=== PATIENT | male | born 1955 | race Caucasian/White ===

== ENCOUNTER 2017-12-02 01:15 | Emergency (ER) | payer MEDICARE, MEDICAID ==
[~2017-12-02] VITALS: Ht 165.1 cm; Wt 93.1 kg
[~2017-12-02 01:15] MED LIST: ADV50250 IH; ALBU18HF2 IH; ALBU2.5V13 NEB; COLC0.6T66 PO; CYCL-1 PO; HYDR12.5 PO; IBUP-1984 PO; IPRA4AER IH; LEV500T PO; NORCO10T PO; PRED20TA PO
[2017-12-02] MEDS ORDERED: albuterol 2.5 MG/3 ML nebule CONTNEB PRN (01:45)
[2017-12-02] MEDS ORDERED: methylPREDNISolone sod succ 125mg/2ml vial IV ONE (01:45)
[2017-12-02 02:11] LABS: BASOPHILS # (AUTO) 0.3 X10'3 (0-0.2); BASOPHILS % (AUTO) 1.8 % (0-1); EOSINOPHILS % (AUTO) 0 % (0-6); HEMATOCRIT 53.7 % (42.0-52.0); LYMPHOCYTES # (AUTO) 1.3 X10'3 (1.1-4.8); LYMPHOCYTES % (AUTO) 8.8 % (21-51); MEAN CORPUSCULAR HEMOGLOBIN 29.6 PG (27.0-31.0); MEAN CORPUSCULAR HGB CONC 33.9 % (33.0-36.5); MEAN CORPUSCULAR VOLUME 87.2 FL (78-98); MEAN PLATELET VOLUME 7.4 FL (7.4-10.4); MONOCYTES # (AUTO) 0.9 X10'3 (0-0.9); MONOCYTES % (AUTO) 5.9 % (2-12); NEUTROPHILS # (AUTO) 12.3 X10'3 (1.8-7.7); NEUTROPHILS % (AUTO) 83.5 % (42-75); PLATELET COUNT 249 X10'3 (140-440); RED BLOOD COUNT 6.17 X10'6 (4.70-6.10); RED CELL DISTRIBUTION WIDTH 13.9 % (11.5-14.5); WHITE BLOOD COUNT 14.8 X10'3 (4.5-11.0)
[2017-12-02 02:19] LABS: HEMOGLOBIN 18.2 g/dl (14.0-17.9)
[2017-12-02 02:20] LABS: PARTIAL THROMBOPLASTIN TIME 26 SECONDS (22-32); PROTHROMBIN TIME 10.3 SECONDS (9.0-12.0)
[2017-12-02 02:50] LABS: ALANINE AMINOTRANSFERASE 20 U/L (12-78); ALBUMIN 3.3 G/DL (3.4-5.0); ALBUMIN/GLOBULIN RATIO 0.9 (1.1-1.5); ALKALINE PHOSPHATASE 78 IU/L (46-116); ANION GAP 9 (8-16); ASPARTATE AMINO TRANSFERASE 15 U/L (10-37); BILIRUBIN,TOTAL 0.3 MG/DL (0.1-1.0); BLOOD UREA NITROGEN 23 MG/DL (7-18); BUN/CREATININE RATIO 16.4 (5.4-32.0); CALCIUM 8.8 MG/DL (8.5-10.1); CHLORIDE 106 MMOL/L (99-107); GLUCOSE 253 MG/DL (70-104); MAGNESIUM 1.8 MG/DL (1.5-2.4); POTASSIUM 4.6 MMOL/L (3.5-5.1); SODIUM 141 MMOL/L (135-145); TOTAL CARBON DIOXIDE 25.6 MMOL/L (24-32); TOTAL PROTEIN 6.8 G/DL (6.4-8.2); eGFR 51 ML/MIN
[2017-12-02] MEDS ORDERED: normal saline 1000ML IV soln IVB ONE (03:35)
[2017-12-02 05:04] VITALS: BP 159/95
== END 2017-12-02 05:06 | disposition home or self-care (01) ==
LOC: ER 01:16
DX: J44.1 Chronic obstructive pulmonary disease with (acute) exacerbation (principal); I10 Essential (primary) hypertension; J44.9 Chronic obstructive pulmonary disease, unspecified; Z88.5 Allergy status to narcotic agent; Z98.890 Other specified postprocedural states; Z79.899 Other long term (current) drug therapy
CPT/HCPCS: 36415; 71045; 80053; 83735; 83880; 84484; 85025; 85610; 85730; 87502; 87503; 93005; 94644; 94760; 96361; 96374; 99285; J2930; J7030; 94640

== ENCOUNTER 2017-12-19 19:54 | Emergency (ER) | payer MEDICARE, OTHER ==
[~2017-12-19] VITALS: Ht 5451.6 cm; Wt 94.0 kg
[2017-12-19 20:33] LABS: BASOPHILS % (AUTO) 0.3 % (0-1); EOSINOPHILS # (AUTO) 0.6 X10'3 (0-0.9); EOSINOPHILS % (AUTO) 5.8 % (0-6); HEMATOCRIT 52.4 % (42.0-52.0); HEMOGLOBIN 17.9 g/dl (14.0-17.9); LYMPHOCYTES # (AUTO) 1.7 X10'3 (1.1-4.8); LYMPHOCYTES % (AUTO) 16.3 % (21-51); MEAN CORPUSCULAR HEMOGLOBIN 29.8 PG (27.0-31.0); MEAN CORPUSCULAR HGB CONC 34.2 % (33.0-36.5); MEAN CORPUSCULAR VOLUME 87.3 FL (78-98); MEAN PLATELET VOLUME 7.4 FL (7.4-10.4); MONOCYTES # (AUTO) 1.3 X10'3 (0-0.9); MONOCYTES % (AUTO) 12.4 % (2-12); NEUTROPHILS # (AUTO) 6.7 X10'3 (1.8-7.7); NEUTROPHILS % (AUTO) 65.2 % (42-75); PLATELET COUNT 194 X10'3 (140-440); RED BLOOD COUNT 6.01 X10'6 (4.70-6.10); RED CELL DISTRIBUTION WIDTH 14.6 % (11.5-14.5); WHITE BLOOD COUNT 10.3 X10'3 (4.5-11.0)
[2017-12-19] MEDS ORDERED: albuterol 2.5 MG/3 ML nebule NEB ONE (20:40)
[2017-12-19 20:45] LABS: ALANINE AMINOTRANSFERASE 18 U/L (12-78); ALBUMIN 3.4 G/DL (3.4-5.0); ALKALINE PHOSPHATASE 71 IU/L (46-116); ANION GAP 9 (8-16); ASPARTATE AMINO TRANSFERASE 16 U/L (10-37); BILIRUBIN,TOTAL 0.4 MG/DL (0.1-1.0); BLOOD UREA NITROGEN 15 MG/DL (7-18); BUN/CREATININE RATIO 10.7 (5.4-32.0); CALCIUM 8.6 MG/DL (8.5-10.1); CHLORIDE 105 MMOL/L (99-107); GLUCOSE 110 MG/DL (70-104); POTASSIUM 4.2 MMOL/L (3.5-5.1); SODIUM 144 MMOL/L (135-145); TOTAL PROTEIN 6.7 G/DL (6.4-8.2); eGFR 51 ML/MIN
[2017-12-19] MEDS: methylPREDNISolone sod succ 125mg/2ml vial IV ONE (21:03)
[2017-12-19] MEDS: normal saline 1000ML IV soln IVB ONE (21:03)
[2017-12-19] MEDS: albuterol 2.5 MG/3 ML nebule CONTNEB PRN (21:15)
[2017-12-19] MEDS ORDERED: CETI10CA PO (23:17)
[2017-12-19] MEDS ORDERED: BENZ-38 PO (23:17)
[2017-12-19] MEDS ORDERED: AZIT-57 PO (23:17)
[2017-12-19] MEDS ORDERED: ALBU18HF2 INH (23:17)
[2017-12-19] MEDS ORDERED: GUAI-178 PO (23:17)
[2017-12-19] MEDS ORDERED: PRED50TA PO (23:17)
[2017-12-19] MEDS: benzonatate 100mg capsule PO ONE (23:33)
[2017-12-19] MEDS: azithromycin 250mg tablet PO ONE (23:33)
[2017-12-19] MEDS: guaiFENesin ER 600mg tablet PO STA (23:33)
[2017-12-19 23:43] VITALS: BP 163/88
== END 2017-12-19 23:45 | disposition home or self-care (01) ==
LOC: ER 19:56
DX: J44.1 Chronic obstructive pulmonary disease with (acute) exacerbation (principal); I10 Essential (primary) hypertension; Z98.890 Other specified postprocedural states; Z88.5 Allergy status to narcotic agent; Z79.899 Other long term (current) drug therapy
CPT/HCPCS: 36415; 71046; 80053; 83605; 85025; 87040; 94644; 96361; 96374; 99285; J2930; J7030; 94640

== ENCOUNTER 2018-02-27 04:21 | Emergency (ER) | payer MEDICARE ==
[~2018-02-27] VITALS: Ht 165.1 cm; Wt 87.0 kg
[~2018-02-27 04:21] MED LIST changes: +ALBU18HF2 INH; +CETI10CA PO; +GUAI-178 PO; +PRED50TA PO
[2018-02-27 05:38] VITALS: BP 156/94
[2018-02-27] MEDS ORDERED: HYDR-3965 PO (06:28)
== END 2018-02-27 06:53 | disposition home or self-care (01) ==
LOC: ER 04:21
DX: G89.29 Other chronic pain (principal); M25.562 Pain in left knee; I10 Essential (primary) hypertension; J44.9 Chronic obstructive pulmonary disease, unspecified; Z88.5 Allergy status to narcotic agent; Z79.899 Other long term (current) drug therapy
CPT/HCPCS: 29505; 73564; 99284

== ENCOUNTER 2019-12-01 01:46 | Emergency (ER) | payer MEDICARE, OTHER, MEDICAID ==
[~2019-12-01] VITALS: Ht 165.1 cm; Wt 90.0 kg
--- NOTE | 2019-12-01 02:00 | NUR ---
patient refusing chest x-ray stating he has film copies from [facility] with him that has been taken this week. Patient explained he will show and if wants new cxr then he would have the imaging done.
[2019-12-01] MEDS ORDERED: ipratropium/albuterol 3ml nebule NEB ONE (02:25)
[2019-12-01 02:36] LABS: BASOPHILS # (AUTO) 0.1 X10'3 (0-0.2); BASOPHILS % (AUTO) 0.9 % (0-1); EOSINOPHILS # (AUTO) 1.3 X10'3 (0-0.9); EOSINOPHILS % (AUTO) 13.9 % (0-6); HEMATOCRIT 48.9 % (42.0-52.0); HEMOGLOBIN 16.8 g/dl (14.0-17.9); LYMPHOCYTES # (AUTO) 2.2 X10'3 (1.1-4.8); MEAN CORPUSCULAR HEMOGLOBIN 29.6 PG (27.0-31.0); MEAN CORPUSCULAR HGB CONC 34.4 g/dL (33.0-36.5); MEAN PLATELET VOLUME 7.3 FL (7.4-10.4); MONOCYTES # (AUTO) 1.2 X10'3 (0-0.9); MONOCYTES % (AUTO) 12.2 % (2-12); NEUTROPHILS # (AUTO) 4.8 X10'3 (1.8-7.7); PLATELET COUNT 211 X10'3 (140-440); RED BLOOD COUNT 5.68 X10'6 (4.70-6.10); RED CELL DISTRIBUTION WIDTH 15.4 % (11.5-14.5); WHITE BLOOD COUNT 9.5 X10'3 (4.5-11.0)
[2019-12-01 02:50] LABS: ALANINE AMINOTRANSFERASE 14 U/L (12-78); ALBUMIN 3.2 G/DL (3.4-5.0); ALKALINE PHOSPHATASE 64 IU/L (46-116); ANION GAP 2 (8-16); ASPARTATE AMINO TRANSFERASE 15 U/L (10-37); BILIRUBIN,TOTAL 0.4 MG/DL (0.1-1.0); BLOOD UREA NITROGEN 17 MG/DL (7-18); BUN/CREATININE RATIO 13.6 (5.4-32.0); CALCIUM 8.3 MG/DL (8.5-10.1); CHLORIDE 109 MMOL/L (99-107); CREATININE 1.25 MG/DL (0.60-1.10); GLUCOSE 162 MG/DL (70-104); POTASSIUM 3.7 MMOL/L (3.5-5.1); SODIUM 138 MMOL/L (135-145); TOTAL CARBON DIOXIDE 26.8 MMOL/L (24-32); TOTAL PROTEIN 6.5 G/DL (6.4-8.2); eGFR 58 ML/MIN
[2019-12-01 02:58] LABS: TROPONIN I < 0.04 NG/ML (0.0-0.05)
[2019-12-01] MEDS ORDERED: magnesium 2GM in 50ml NS 50 ML IV ONE (03:15)
[2019-12-01] MEDS ORDERED: methylPREDNISolone sod succ 125mg/2ml vial IV ONE (03:15)
[2019-12-01] MEDS ORDERED: BENZ-16 PO (03:42)
[2019-12-01] MEDS ORDERED: PRED20TA PO (03:43)
[2019-12-01] MEDS ORDERED: DOXY100C43 PO (03:43)
[2019-12-01] MEDS ORDERED: benzonatate 100mg capsule PO ONE (03:45)
[2019-12-01] MEDS ORDERED: albuterol 2.5 MG/3 ML nebule NEB ONE (03:45)
[2019-12-01 04:52] VITALS: BP 137/90
== END 2019-12-01 04:55 | disposition home or self-care (01) ==
LOC: ER 01:46
DX: J44.9 Chronic obstructive pulmonary disease, unspecified (principal); I10 Essential (primary) hypertension; F17.210 Nicotine dependence, cigarettes, uncomplicated; Z98.890 Other specified postprocedural states; Z88.5 Allergy status to narcotic agent; Z79.899 Other long term (current) drug therapy
CPT/HCPCS: 36415; 71045; 80053; 83880; 84484; 85025; 93005; 94640; 96365; 96375; 99284; J2930; J3475; 94760

== ENCOUNTER 2019-12-11 14:32 | Emergency (ER) | payer MEDICARE, OTHER, MEDICAID ==
[~2019-12-11] VITALS: Ht 165.1 cm; Wt 90.9 kg
[~2019-12-11 14:32] MED LIST changes: +BENZ-16 PO; +DOXY100C43 PO
[2019-12-11 15:37] LABS: BASOPHILS % (AUTO) 0.2 % (0-1); EOSINOPHILS # (AUTO) 0.9 X10'3 (0-0.9); EOSINOPHILS % (AUTO) 9.4 % (0-6); HEMATOCRIT 49.7 % (42.0-52.0); HEMOGLOBIN 16.8 g/dl (14.0-17.9); LYMPHOCYTES # (AUTO) 1.7 X10'3 (1.1-4.8); LYMPHOCYTES % (AUTO) 17.9 % (21-51); MEAN CORPUSCULAR HEMOGLOBIN 29.4 PG (27.0-31.0); MEAN CORPUSCULAR HGB CONC 33.9 g/dL (33.0-36.5); MEAN CORPUSCULAR VOLUME 86.8 FL (78-98); MEAN PLATELET VOLUME 7.3 FL (7.4-10.4); NEUTROPHILS % (AUTO) 62.5 % (42-75); PLATELET COUNT 191 X10'3 (140-440); RED BLOOD COUNT 5.72 X10'6 (4.70-6.10); RED CELL DISTRIBUTION WIDTH 15.5 % (11.5-14.5); WHITE BLOOD COUNT 9.6 X10'3 (4.5-11.0)
[2019-12-11 15:54] LABS: ALANINE AMINOTRANSFERASE 18 U/L (12-78); ALBUMIN 3.2 G/DL (3.4-5.0); ALBUMIN/GLOBULIN RATIO 0.9 (1.1-1.5); ALKALINE PHOSPHATASE 60 IU/L (46-116); ANION GAP 6 (8-16); ASPARTATE AMINO TRANSFERASE 18 U/L (10-37); BILIRUBIN,TOTAL 0.3 MG/DL (0.1-1.0); BLOOD UREA NITROGEN 25 MG/DL (7-18); BUN/CREATININE RATIO 20.2 (5.4-32.0); CALCIUM 8.5 MG/DL (8.5-10.1); CHLORIDE 107 MMOL/L (99-107); CREATININE 1.24 MG/DL (0.60-1.10); GLUCOSE 175 MG/DL (70-104); SODIUM 143 MMOL/L (135-145); TOTAL PROTEIN 6.6 G/DL (6.4-8.2); eGFR 58 ML/MIN
[2019-12-11] MEDS ORDERED: methylPREDNISolone sod succ 125mg/2ml vial IV ONE (16:05)
[2019-12-11] MEDS ORDERED: ipratropium/albuterol 3ml nebule NEB ONE (16:20)
[2019-12-11] MEDS ORDERED: magnesium 2GM in 50ml NS 50 ML IV ONE (16:25)
[2019-12-11] MEDS ORDERED: azithromycin 250mg tablet PO ONE (16:25)
[2019-12-11] MEDS ORDERED: albuterol 2.5 MG/3 ML nebule CONTNEB PRN (16:50)
[2019-12-11] MEDS ORDERED: BENZ-16 PO (18:57)
[2019-12-11] MEDS ORDERED: AZIT250T83 PO (18:57)
[2019-12-11] MEDS ORDERED: PRED20TA PO (18:57)
[2019-12-11 19:22] VITALS: BP 135/85
== END 2019-12-11 19:25 | disposition home or self-care (01) ==
LOC: ER 14:32
DX: J44.1 Chronic obstructive pulmonary disease with (acute) exacerbation (principal); I10 Essential (primary) hypertension; Z98.890 Other specified postprocedural states; Z88.5 Allergy status to narcotic agent; Z79.2 Long term (current) use of antibiotics; Z79.899 Other long term (current) drug therapy
CPT/HCPCS: 36415; 71045; 80053; 83880; 84484; 85025; 93005; 94640; 96365; 96375; 99285; J2930; J3475; 94760

== ENCOUNTER 2019-12-16 01:04 | Inpatient (IN) | payer MEDICARE, OTHER, MEDICAID ==
[~2019-12-16] VITALS: Ht 165.1 cm; Wt 96.0 kg
[~2019-12-16 01:04] MED LIST changes: +AZIT250T83 PO
[2019-12-16] MEDS ORDERED: methylPREDNISolone sod succ 125mg/2ml vial IV ONE (01:10)
[2019-12-16] MEDS ORDERED: ipratropium/albuterol 3ml nebule NEB ONE ×2 (01:10→03:00)
[2019-12-16] MEDS ORDERED: magnesium 2GM in 50ml NS 50 ML IV ONE (01:40)
[2019-12-16 01:50] LABS: BASOPHILS % (AUTO) 0.2 % (0-1); EOSINOPHILS # (AUTO) 0.1 X10'3 (0-0.9); EOSINOPHILS % (AUTO) 0.7 % (0-6); HEMATOCRIT 48.3 % (42.0-52.0); HEMOGLOBIN 16.5 g/dl (14.0-17.9); LYMPHOCYTES # (AUTO) 2.5 X10'3 (1.1-4.8); LYMPHOCYTES % (AUTO) 15.7 % (21-51); MEAN CORPUSCULAR HEMOGLOBIN 29.8 PG (27.0-31.0); MEAN CORPUSCULAR HGB CONC 34.2 g/dL (33.0-36.5); MEAN CORPUSCULAR VOLUME 87.3 FL (78-98); MEAN PLATELET VOLUME 7.4 FL (7.4-10.4); MONOCYTES # (AUTO) 1.6 X10'3 (0-0.9); MONOCYTES % (AUTO) 9.8 % (2-12); NEUTROPHILS # (AUTO) 11.9 X10'3 (1.8-7.7); NEUTROPHILS % (AUTO) 73.6 % (42-75); PLATELET COUNT 224 X10'3 (140-440); RED BLOOD COUNT 5.53 X10'6 (4.70-6.10); RED CELL DISTRIBUTION WIDTH 15.9 % (11.5-14.5); WHITE BLOOD COUNT 16.2 X10'3 (4.5-11.0)
[2019-12-16 02:04] LABS: ALANINE AMINOTRANSFERASE 15 U/L (12-78); ALBUMIN 3.4 G/DL (3.4-5.0); ALBUMIN/GLOBULIN RATIO 1.1 (1.1-1.5); ALKALINE PHOSPHATASE 55 IU/L (46-116); ANION GAP 9 (8-16); ASPARTATE AMINO TRANSFERASE 16 U/L (10-37); BILIRUBIN,TOTAL 0.2 MG/DL (0.1-1.0); BLOOD UREA NITROGEN 30 MG/DL (7-18); BUN/CREATININE RATIO 20.1 (5.4-32.0); CALCIUM 9.1 MG/DL (8.5-10.1); CHLORIDE 108 MMOL/L (99-107); CREATININE 1.49 MG/DL (0.60-1.10); GLUCOSE 213 MG/DL (70-104); POTASSIUM 3.8 MMOL/L (3.5-5.1); SODIUM 143 MMOL/L (135-145); TOTAL CARBON DIOXIDE 25.7 MMOL/L (24-32); TOTAL PROTEIN 6.6 G/DL (6.4-8.2); eGFR 47 ML/MIN
[2019-12-16] MEDS ORDERED: normal saline 1000ML IV soln IVB ONE (02:10)
[2019-12-16 03:36] LABS: PLATELET ESTIMATE NORMAL; TOTAL CELLS COUNTED 100
[2019-12-16] MEDS ORDERED: PRED10TA PO (04:37)
[2019-12-16] MEDS ORDERED: AZIT250T PO (04:37)
--- NOTE | 2019-12-16 04:55 | NUR ---
Took patient on a a walk around the Ed to test for DE-saturation. In one lap patient's SPO2 was 94% with a HR of 126. Patient was in moderate distress and unable to speak in more than 2-3 word sentences.
[2019-12-16] MEDS ORDERED: potassium Cl 20 mEq SR tablet PO PRN ×2 (05:40)
[2019-12-16] MEDS ORDERED: mag hydrox/Alum hydrox/simeth 30ml oral suspension PO PRN (05:40)
[2019-12-16] MEDS ORDERED: magnesium Cl slow-release 64mg tablet PO PRN (05:40)
[2019-12-16] MEDS ORDERED: magnesium 2GM in 50ml NS 50 ML IV PRN (05:40)
[2019-12-16] MEDS ORDERED: magnesium 4gm in 100ml NS 100 ML IV PRN (05:40)
[2019-12-16] MEDS ORDERED: ondansetron/PF 4mg/2ml inj IV PRN (05:40)
[2019-12-16] MEDS ORDERED: potassium CL 10mEq/100ml bag 100 ML IV PRN ×2 (05:40)
[2019-12-16] MEDS ORDERED: acetaminophen 325mg tablet PO PRN ×2 (05:40)
[2019-12-16] MEDS ORDERED: docusate sod 100mg capsule PO PRN (05:40)
[2019-12-16] MEDS ORDERED: albuterol 2.5 MG/3 ML nebule ONE (06:52)
[2019-12-16] MEDS: albuterol 2.5 MG/3 ML nebule NEB SCH ×5 (06:57→23:56)
[2019-12-16] MEDS: K and/or MAG REPLACEMENT MC SCH (07:16)
[2019-12-16 07:30] VITALS: BP 156/93
[2019-12-16] MEDS: benzonatate 100mg capsule PO SCH ×3 (10:05→21:00)
[2019-12-16] MEDS: heparin, porcine 5000 units/ml vial SQ SCH ×2 (10:06→20:31)
[2019-12-16] MEDS: methylPREDNISolone sod succ 125mg/2ml vial IV SCH ×2 (10:07→20:29)
[2019-12-16] MEDS: CefTRIAXone 2gm/D5W 50ml 50 ML IV SCH (10:20)
[2019-12-16 11:00] VITALS: BP 154/87
[2019-12-16 15:00] VITALS: BP 165/87
--- NOTE | 2019-12-16 17:14 | NUR ---
PAGER ID: [phone] MESSAGE: [id number] Celestino Manuel BP 165/87 MAXINE Martin Ext [phone]
[2019-12-16 18:00] VITALS: BP 169/88
--- NOTE | 2019-12-16 18:56 | NUR ---
Problems reprioritized. Patient report given, questions answered & plan of care reviewed with MAXINE Harris.
[2019-12-16] MEDS ORDERED: FURO-150 PO (20:47)
[2019-12-16] MEDS ORDERED: AZIT250T13 PO (20:47)
[2019-12-16] MEDS ORDERED: LISI-600 PO (20:47)
[2019-12-16] MEDS ORDERED: temazepam 15mg capsule PO PRN (21:00)
[2019-12-16 22:00] VITALS: BP 150/85
[2019-12-17] VITALS (7 sets, daily range): BP systolic 143–170; BP diastolic 80–93
[2019-12-17] MEDS: albuterol 2.5 MG/3 ML nebule NEB SCH ×5 (03:19→19:58)
--- NOTE | 2019-12-17 06:00 | NUR ---
Patient in room PCU 3023. I have received report from Keenan GOODMAN and had the opportunity to ask questions and assume patient care.
[2019-12-17 06:10] LABS: BASOPHILS % (AUTO) 0.2 % (0-1); EOSINOPHILS % (AUTO) 0 % (0-6); HEMATOCRIT 47.9 % (42.0-52.0); HEMOGLOBIN 16.5 g/dl (14.0-17.9); LYMPHOCYTES # (AUTO) 1.3 X10'3 (1.1-4.8); LYMPHOCYTES % (AUTO) 7.2 % (21-51); MEAN CORPUSCULAR HEMOGLOBIN 29.5 PG (27.0-31.0); MEAN CORPUSCULAR HGB CONC 34.4 g/dL (33.0-36.5); MEAN CORPUSCULAR VOLUME 85.7 FL (78-98); MEAN PLATELET VOLUME 7.5 FL (7.4-10.4); MONOCYTES # (AUTO) 0.7 X10'3 (0-0.9); MONOCYTES % (AUTO) 4.1 % (2-12); NEUTROPHILS # (AUTO) 15.7 X10'3 (1.8-7.7); NEUTROPHILS % (AUTO) 88.5 % (42-75); PLATELET COUNT 252 X10'3 (140-440); RED BLOOD COUNT 5.59 X10'6 (4.70-6.10); WHITE BLOOD COUNT 17.7 X10'3 (4.5-11.0)
[2019-12-17 06:34] LABS: ALBUMIN 3.1 G/DL (3.4-5.0); ANION GAP 9 (8-16); BLOOD UREA NITROGEN 29 MG/DL (7-18); BUN/CREATININE RATIO 23.2 (5.4-32.0); CALCIUM 8.8 MG/DL (8.5-10.1); CHLORIDE 106 MMOL/L (99-107); CREATININE 1.25 MG/DL (0.60-1.10); GLUCOSE 190 MG/DL (70-104); MAGNESIUM 2.3 MG/DL (1.5-2.4); POTASSIUM 4.6 MMOL/L (3.5-5.1); SODIUM 140 MMOL/L (135-145); eGFR 58 ML/MIN
[2019-12-17] MEDS: K and/or MAG REPLACEMENT MC SCH ×2 (08:00→20:00)
[2019-12-17] MEDS: CefTRIAXone 2gm/D5W 50ml 50 ML IV SCH (08:00)
[2019-12-17] MEDS: heparin, porcine 5000 units/ml vial SQ SCH ×2 (08:25→20:26)
[2019-12-17] MEDS: methylPREDNISolone sod succ 125mg/2ml vial IV SCH ×2 (08:25→20:26)
[2019-12-17] MEDS: benzonatate 100mg capsule PO SCH ×3 (08:26→20:27)
--- NOTE | 2019-12-17 09:00 | NUR ---
Discussed blood pressure and home meds with Dr. Bean, requested that she address home meds. stated she was having issues with the med rec and manually entered Lisinopril at a lower dose. Will continue to monitor blood pressure.
[2019-12-17] MEDS: normal saline 1000ml 1,000 ML IV SCH (10:37)
[2019-12-17] MEDS: lisinopril 2.5mg tablet PO SCH (10:37)
[2019-12-17] MEDS: azithromycin/NS 500mg/250ml 250 ML IV SCH (11:43)
--- NOTE | 2019-12-17 18:16 | NUR ---
Problems reprioritized. Patient report given, questions answered & plan of care reviewed with Anita GOODMAN.
--- NOTE | 2019-12-17 18:30 | NUR ---
Patient in room PCU 3023. I have received report from MARISELA and had the opportunity to ask questions and assume patient care. ASSUMED CARE OF PT WITH RN STUDENT DOLORES Ballesteros
[2019-12-17] MEDS ORDERED: PRED20TA PO (18:48)
[2019-12-17] MEDS ORDERED: FURO40TA4 PO (18:48)
[2019-12-17] MEDS ORDERED: POTA15TA11 PO (18:48)
[2019-12-18] MEDS: albuterol 2.5 MG/3 ML nebule NEB SCH ×7 (00:02→23:56)
[2019-12-18 02:00] VITALS: BP 164/93
[2019-12-18] MEDS: normal saline 1000ml 1,000 ML IV SCH (03:44)
--- NOTE | 2019-12-18 05:22 | NUR ---
Student documentation: I have reviewed and agree with all interventions, assessments performed and documented by DOLORES Johnson Medication Administration: For this medication-pass time frame, all medication were reviewed, dispensed, administered and documented per hospital policy by DOLORES Ballesteros
--- NOTE | 2019-12-18 06:27 | NUR ---
Problems reprioritized. Patient report given, questions answered & plan of care reviewed with MARISELA.
[2019-12-18 06:45] LABS: BASOPHILS # (AUTO) 0.1 X10'3 (0-0.2); BASOPHILS % (AUTO) 0.4 % (0-1); EOSINOPHILS % (AUTO) 0 % (0-6); HEMATOCRIT 47.4 % (42.0-52.0); HEMOGLOBIN 15.9 g/dl (14.0-17.9); LYMPHOCYTES # (AUTO) 0.9 X10'3 (1.1-4.8); LYMPHOCYTES % (AUTO) 5.4 % (21-51); MEAN CORPUSCULAR HGB CONC 33.5 g/dL (33.0-36.5); MEAN CORPUSCULAR VOLUME 86.6 FL (78-98); MEAN PLATELET VOLUME 7.4 FL (7.4-10.4); MONOCYTES # (AUTO) 0.8 X10'3 (0-0.9); NEUTROPHILS # (AUTO) 14.9 X10'3 (1.8-7.7); NEUTROPHILS % (AUTO) 89.2 % (42-75); PLATELET COUNT 236 X10'3 (140-440); RED BLOOD COUNT 5.48 X10'6 (4.70-6.10); WHITE BLOOD COUNT 16.7 X10'3 (4.5-11.0)
[2019-12-18 06:56] LABS: ALBUMIN 2.8 G/DL (3.4-5.0); ANION GAP 9 (8-16); BLOOD UREA NITROGEN 34 MG/DL (7-18); BUN/CREATININE RATIO 28.1 (5.4-32.0); CALCIUM 8.3 MG/DL (8.5-10.1); CHLORIDE 107 MMOL/L (99-107); CREATININE 1.21 MG/DL (0.60-1.10); GLUCOSE 218 MG/DL (70-104); MAGNESIUM 2.2 MG/DL (1.5-2.4); SODIUM 140 MMOL/L (135-145); TOTAL CARBON DIOXIDE 23.6 MMOL/L (24-32); eGFR 60 ML/MIN
[2019-12-18 07:00] VITALS: BP 129/75
[2019-12-18 07:10] LABS: POTASSIUM 4.6 MMOL/L (3.5-5.1)
--- NOTE | 2019-12-18 07:26 | NUR ---
Patient in room PCU 3023. I have received report from Anita GOODMAN and had the opportunity to ask questions and assume patient care.
[2019-12-18] MEDS: lisinopril 2.5mg tablet PO SCH (07:33)
[2019-12-18] MEDS: benzonatate 100mg capsule PO SCH ×3 (07:33→19:30)
[2019-12-18] MEDS: heparin, porcine 5000 units/ml vial SQ SCH ×2 (07:33→20:00)
[2019-12-18] MEDS: methylPREDNISolone sod succ 125mg/2ml vial IV SCH ×2 (07:33→19:30)
[2019-12-18] MEDS: CefTRIAXone 2gm/D5W 50ml 50 ML IV SCH (07:33)
[2019-12-18] MEDS: K and/or MAG REPLACEMENT MC SCH ×2 (08:00→21:47)
[2019-12-18] MEDS: azithromycin/NS 500mg/250ml 250 ML IV SCH (08:43)
--- NOTE | 2019-12-18 09:00 | NUR ---
Requested MD to review med rec again to see if any changes need to be made. MD gave verbal order to increase lisinopril to 10 mg po QD. Pt's blood pressure has been within normal limits thus far for day shift.
[2019-12-18 11:00] VITALS: BP 153/84
[2019-12-18 15:00] VITALS: BP 154/84
[2019-12-18 18:00] VITALS: BP 159/82
--- NOTE | 2019-12-18 18:18 | NUR ---
Problems reprioritized. Patient report given, questions answered & plan of care reviewed with jona GOODMAN.
[2019-12-18 22:00] VITALS: BP 137/81
[2019-12-19] VITALS (7 sets, daily range): BP systolic 137–154; BP diastolic 81–89
[2019-12-19] MEDS: normal saline 1000ml 1,000 ML IV SCH (01:57)
[2019-12-19] MEDS: albuterol 2.5 MG/3 ML nebule NEB SCH ×4 (03:46→16:25)
--- NOTE | 2019-12-19 04:58 | NUR ---
PT WOKE WITH CHEST PAIN. HE SAID IT IS NOT NECESSARILY NEW BUT WORSE AND RADIATING DOWN LEFT SIDE OF CHEST. PAIN 5/10. STATED HE HAS HX OF INDIGESTION. EKG DONE PER PROTOCOL. NOTIFIED.
[2019-12-19] MEDS ORDERED: aspirin 81mg tab.chew PO ONE (05:15)
[2019-12-19] MEDS ORDERED: nitroGLYCERIN 0.4mg SUBLingual tab SL PRN (05:15)
[2019-12-19 05:19] LABS: BASOPHILS % (AUTO) 0.1 % (0-1); EOSINOPHILS % (AUTO) 0 % (0-6); HEMATOCRIT 47.2 % (42.0-52.0); HEMOGLOBIN 16.1 g/dl (14.0-17.9); LYMPHOCYTES # (AUTO) 0.8 X10'3 (1.1-4.8); LYMPHOCYTES % (AUTO) 5.8 % (21-51); MEAN CORPUSCULAR HEMOGLOBIN 29.9 PG (27.0-31.0); MEAN CORPUSCULAR HGB CONC 34.2 g/dL (33.0-36.5); MEAN CORPUSCULAR VOLUME 87.5 FL (78-98); MEAN PLATELET VOLUME 7.4 FL (7.4-10.4); MONOCYTES # (AUTO) 0.6 X10'3 (0-0.9); MONOCYTES % (AUTO) 4.2 % (2-12); NEUTROPHILS # (AUTO) 12.6 X10'3 (1.8-7.7); NEUTROPHILS % (AUTO) 89.9 % (42-75); PLATELET COUNT 221 X10'3 (140-440); RED BLOOD COUNT 5.39 X10'6 (4.70-6.10); RED CELL DISTRIBUTION WIDTH 15.7 % (11.5-14.5); WHITE BLOOD COUNT 14.1 X10'3 (4.5-11.0)
[2019-12-19 05:22] LABS: ALBUMIN 2.9 G/DL (3.4-5.0); ANION GAP 8 (8-16); BLOOD UREA NITROGEN 31 MG/DL (7-18); BUN/CREATININE RATIO 23.1 (5.4-32.0); CALCIUM 8.4 MG/DL (8.5-10.1); CHLORIDE 107 MMOL/L (99-107); CREATININE 1.34 MG/DL (0.60-1.10); GLUCOSE 204 MG/DL (70-104); MAGNESIUM 2.2 MG/DL (1.5-2.4); POTASSIUM 4.5 MMOL/L (3.5-5.1); SODIUM 140 MMOL/L (135-145); TOTAL CARBON DIOXIDE 24.9 MMOL/L (24-32); eGFR 53 ML/MIN
--- NOTE | 2019-12-19 06:24 | NUR ---
Problems reprioritized. Patient report given, questions answered & plan of care reviewed with Vikash hooper.
--- NOTE | 2019-12-19 07:18 | NUR ---
Patient in room PCU 3023. I have received report from Priya GOODMAN and had the opportunity to ask questions and assume patient care.
[2019-12-19] MEDS ORDERED: lisinopril 10 MG tablet PO SCH (08:00)
[2019-12-19] MEDS: heparin, porcine 5000 units/ml vial SQ SCH (08:00)
[2019-12-19] MEDS: K and/or MAG REPLACEMENT MC SCH (08:00)
[2019-12-19] MEDS: methylPREDNISolone sod succ 125mg/2ml vial IV SCH (08:25)
[2019-12-19] MEDS: benzonatate 100mg capsule PO SCH ×2 (08:27→13:01)
[2019-12-19] MEDS: CefTRIAXone 2gm/D5W 50ml 50 ML IV SCH (08:28)
[2019-12-19] MEDS: azithromycin/NS 500mg/250ml 250 ML IV SCH (09:24)
[2019-12-19] MEDS ORDERED: PRED10TA23 PO (16:32)
[2019-12-19] MEDS ORDERED: LEVO500T2 PO (16:32)
--- NOTE | 2019-12-19 17:35 | NUR ---
Patient was cleared to discharge. Discharge instructions and new medications reviewed with patient. New prescriptions were e-faxed to [facility] per patients request. Pt. stated he will call and make a FU appointment with his primary care provider within the week. Tele removed and PIV removed. Patient is currently waiting for his ride.
--- NOTE | 2019-12-19 17:35 | NUR ---
patient left the hospital in stable condition.
--- NOTE | 2019-12-20 11:05 | NUR ---
case management DC follow up: LM/VM asking rtn call questions/concerns, post DC status Addendum: 12/21/19 at 1411 by Elana Lopez RN case management DC follow up:pt rtnd call 12/20/2019. reports, "feeling better", "taking it easy". Denies emergent SOB, resp distress. NV, cp, acute general pain, leg pain, giovanna pain, dizziness,fever. verbalizes understanding of meds and why prescribed, taking as ordred, no ase noted. Follow up appt made and kept for 12/20/2019 w/PCP/[facility]. verbalizes understanding of s/s that would warrant -/ER visit for evaluation. needs met, questions answered at DC. no further questions at this time.
== END 2019-12-19 17:35 | disposition home or self-care (01) | DRG 191 ==
LOC: ER 01:05 → ED HOLD 05:36 → PCU 3S 07:21
PROVIDERS: ADMIT Internal Medicine; ATTEND Internal Medicine
DX: J44.1 Chronic obstructive pulmonary disease with (acute) exacerbation (principal); N17.9 Acute kidney failure, unspecified; J45.901 Unspecified asthma with (acute) exacerbation; N18.3 Chronic kidney disease, stage 3 (moderate); I12.9 Hypertensive chronic kidney disease with stage 1 through stage 4 chronic kidney disease, or unspecified chronic kidney disease; I25.10 Atherosclerotic heart disease of native coronary artery without angina pectoris; Z88.5 Allergy status to narcotic agent; Z79.899 Other long term (current) drug therapy
CPT/HCPCS: 36415; 71045; 80048; 80053; 83605; 83735; 83880; 84145; 84484; 85025; 87040; 87081; 93005; 93306; 94640; 94760; 97116; 97161; 97530; G0378; J0456; J0696; J1644; J2930; J3475; J7030

== ENCOUNTER 2020-02-03 03:49 | Emergency (ER) | payer MEDICARE, OTHER ==
[~2020-02-03] VITALS: Ht 165.1 cm; Wt 94.5 kg
[~2020-02-03 03:49] MED LIST changes: -AZIT250T83 PO; -BENZ-16 PO; -CETI10CA PO; -CYCL-1 PO; -DOXY100C43 PO; +FURO40TA4 PO; -GUAI-178 PO; -IBUP-1984 PO; -LEV500T PO; +LISI-600 PO; -NORCO10T PO; +POTA15TA11 PO; -PRED20TA PO; -PRED50TA PO
[2020-02-03] MEDS ORDERED: ipratropium/albuterol 3ml nebule NEB ONE ×2 (04:05→04:25)
[2020-02-03] MEDS ORDERED: methylPREDNISolone sod succ 125mg/2ml vial IM ONE (04:05)
[2020-02-03 04:41] VITALS: BP 152/94
== END 2020-02-03 04:45 | disposition home or self-care (01) ==
LOC: ER 03:50
DX: J44.1 Chronic obstructive pulmonary disease with (acute) exacerbation (principal); I10 Essential (primary) hypertension; Z88.5 Allergy status to narcotic agent; Z79.899 Other long term (current) drug therapy
CPT/HCPCS: 71045; 94640; 96372; 99284; J2930; 94760

== ENCOUNTER 2020-03-24 21:26 | Emergency (ER) | payer MEDICARE, OTHER, MEDICAID ==
[~2020-03-24] VITALS: Ht 165.1 cm; Wt 90.9 kg
[2020-03-24] MEDS ORDERED: CEPH250T PO (22:38)
[2020-03-24] MEDS ORDERED: IBUP-1984 PO (22:38)
[2020-03-24 22:43] VITALS: BP 175/90
== END 2020-03-24 22:44 | disposition home or self-care (01) ==
LOC: ER 21:27
DX: M79.641 Pain in right hand (principal); I10 Essential (primary) hypertension; J44.9 Chronic obstructive pulmonary disease, unspecified; Z88.5 Allergy status to narcotic agent; Z79.899 Other long term (current) drug therapy
CPT/HCPCS: 73130; 99283

== ENCOUNTER → 2020-05-18 | Emergency (ER) | payer MEDICARE, OTHER, MEDICAID ==
[~2020-05-18] VITALS: Ht 165.1 cm; Wt 100.0 kg
[~2020-05-18] MED LIST changes: +IBUP-1984 PO; +ipratropium/albuterol 3ml nebule NEB ONE; +methylPREDNISolone sod succ 125mg/2ml vial IV ONE; +triamcinolone acetonide 40mg/ml inj IM ONE
[2020-05-18 01:20] LABS: BASOPHILS # (AUTO) 0.1 X10'3 (0-0.2); BASOPHILS % (AUTO) 0.7 % (0-1); EOSINOPHILS # (AUTO) 1.4 X10'3 (0-0.9); EOSINOPHILS % (AUTO) 15.8 % (0-6); HEMATOCRIT 50.9 % (42.0-52.0); HEMOGLOBIN 17.3 g/dl (14.0-17.9); LYMPHOCYTES # (AUTO) 2.4 X10'3 (1.1-4.8); LYMPHOCYTES % (AUTO) 27.6 % (21-51); MEAN CORPUSCULAR VOLUME 88.2 FL (78-98); MEAN PLATELET VOLUME 7.5 FL (7.4-10.4); MONOCYTES % (AUTO) 10.7 % (2-12); NEUTROPHILS % (AUTO) 45.2 % (42-75); PLATELET COUNT 232 X10'3 (140-440); RED BLOOD COUNT 5.78 X10'6 (4.70-6.10); RED CELL DISTRIBUTION WIDTH 15.1 % (11.5-14.5); WHITE BLOOD COUNT 8.9 X10'3 (4.5-11.0)
[2020-05-18 01:37] LABS: PARTIAL THROMBOPLASTIN TIME 27 SECONDS (22-32)
[2020-05-18 01:40] LABS: ALANINE AMINOTRANSFERASE 18 U/L (12-78); ALBUMIN 3.5 G/DL (3.4-5.0); ALBUMIN/GLOBULIN RATIO 1.1 (1.1-1.5); ALKALINE PHOSPHATASE 71 IU/L (46-116); ANION GAP 4 (8-16); ASPARTATE AMINO TRANSFERASE 22 U/L (10-37); BILIRUBIN,TOTAL 0.3 MG/DL (0.1-1.0); BLOOD UREA NITROGEN 16 MG/DL (7-18); BUN/CREATININE RATIO 11.7 (5.4-32.0); CALCIUM 8.6 MG/DL (8.5-10.1); CHLORIDE 112 MMOL/L (99-107); CREATININE 1.37 MG/DL (0.60-1.10); GLUCOSE 111 MG/DL (70-104); POTASSIUM 4.9 MMOL/L (3.5-5.1); SODIUM 145 MMOL/L (135-145); TOTAL CARBON DIOXIDE 29.1 MMOL/L (24-32); TOTAL PROTEIN 6.6 G/DL (6.4-8.2); eGFR 52 ML/MIN
[2020-05-18 02:21] VITALS: BP 159/92
== END | disposition home or self-care (01) ==
LOC: ER 00:51
DX: J44.1 Chronic obstructive pulmonary disease with (acute) exacerbation (principal); I50.9 Heart failure, unspecified; I11.0 Hypertensive heart disease with heart failure; Z98.890 Other specified postprocedural states; Z88.5 Allergy status to narcotic agent; Z79.899 Other long term (current) drug therapy
CPT/HCPCS: 36415; 71045; 80053; 83880; 84484; 85025; 85610; 85730; 93005; 94640; 96372; 96374; 99285; J2930; J3301; 94760

== ENCOUNTER → 2020-08-12 | Outpatient (CLI) | payer MEDICARE, OTHER ==
[~2020-08-12] MED LIST changes: -ADV50250 IH; -ALBU18HF2 INH; -ALBU2.5V13 NEB; -HYDR12.5 PO; -IPRA4AER IH; -ipratropium/albuterol 3ml nebule NEB ONE; -methylPREDNISolone sod succ 125mg/2ml vial IV ONE; -triamcinolone acetonide 40mg/ml inj IM ONE
== END | disposition home or self-care (01) ==
LOC: VAS 12:32
PROVIDERS: ATTEND Nurse Practitioner
DX: M79.89 Other specified soft tissue disorders (principal)
CPT/HCPCS: 93971

== ENCOUNTER 2020-09-08 10:40 | Emergency (ER) | payer MEDICARE, OTHER ==
[~2020-09-08] VITALS: Ht 165.1 cm; Wt 90.0 kg
--- NOTE | 2020-09-08 10:45 | NUR ---
PT REFUSED EKG.
[2020-09-08 11:55] LABS: BASOPHILS # (AUTO) 0.1 X10'3 (0-0.2); BASOPHILS % (AUTO) 0.9 % (0-1); EOSINOPHILS # (AUTO) 0.9 X10'3 (0-0.9); EOSINOPHILS % (AUTO) 8.9 % (0-6); HEMATOCRIT 50.6 % (42.0-52.0); HEMOGLOBIN 17.1 g/dl (14.0-17.9); LYMPHOCYTES # (AUTO) 1.5 X10'3 (1.1-4.8); LYMPHOCYTES % (AUTO) 15.5 % (21-51); MEAN CORPUSCULAR HEMOGLOBIN 29.5 PG (27.0-31.0); MEAN CORPUSCULAR HGB CONC 33.9 g/dL (33.0-36.5); MEAN CORPUSCULAR VOLUME 87.3 FL (78-98); MEAN PLATELET VOLUME 7.4 FL (7.4-10.4); MONOCYTES # (AUTO) 0.8 X10'3 (0-0.9); NEUTROPHILS # (AUTO) 6.4 X10'3 (1.8-7.7); NEUTROPHILS % (AUTO) 66.7 % (42-75); PLATELET COUNT 231 X10'3 (140-440); RED BLOOD COUNT 5.79 X10'6 (4.70-6.10); RED CELL DISTRIBUTION WIDTH 14.4 % (11.5-14.5); WHITE BLOOD COUNT 9.6 X10'3 (4.5-11.0)
[2020-09-08 12:07] LABS: ALANINE AMINOTRANSFERASE 14 U/L (12-78); ALBUMIN 3.3 G/DL (3.4-5.0); ALKALINE PHOSPHATASE 84 IU/L (46-116); ANION GAP 8 (8-16); ASPARTATE AMINO TRANSFERASE 12 U/L (10-37); BILIRUBIN,TOTAL 0.3 MG/DL (0.1-1.0); BLOOD UREA NITROGEN 14 MG/DL (7-18); BUN/CREATININE RATIO 11.5 (5.4-32.0); CALCIUM 8.7 MG/DL (8.5-10.1); CHLORIDE 107 MMOL/L (99-107); CREATININE 1.22 MG/DL (0.60-1.10); GLUCOSE 183 MG/DL (70-104); POTASSIUM 3.9 MMOL/L (3.5-5.1); SODIUM 143 MMOL/L (135-145); TOTAL CARBON DIOXIDE 28.2 MMOL/L (24-32); TOTAL PROTEIN 6.6 G/DL (6.4-8.2); eGFR 59 ML/MIN
[2020-09-08] MEDS ORDERED: methylPREDNISolone sod succ 125mg/2ml vial IV ONE (12:55)
[2020-09-08] MEDS ORDERED: ipratropium/albuterol 3ml nebule NEB PRN (12:55)
[2020-09-08] MEDS ORDERED: PRED10TA23 PO (14:18)
[2020-09-08 15:15] VITALS: BP 159/80
== END 2020-09-08 15:17 | disposition home or self-care (01) ==
LOC: ER 10:41
DX: J44.1 Chronic obstructive pulmonary disease with (acute) exacerbation (principal); R06.2 Wheezing; R06.02 Shortness of breath; R05 Cough; M79.89 Other specified soft tissue disorders; I11.0 Hypertensive heart disease with heart failure; I50.9 Heart failure, unspecified; Z98.890 Other specified postprocedural states; Z88.5 Allergy status to narcotic agent; Z79.899 Other long term (current) drug therapy
CPT/HCPCS: 36415; 71045; 80053; 83880; 84484; 85025; 94640; 96374; 99285; J2930; 94760

== ENCOUNTER 2020-10-19 18:17 | Emergency (ER) | payer MEDICARE, OTHER ==
[~2020-10-19] VITALS: Ht 165.1 cm; Wt 93.2 kg
--- NOTE | 2020-10-19 19:11 | NUR ---
RT AT BEDSIDE
[2020-10-19] MEDS: ipratropium/albuterol 3ml nebule NEB SCH ×2 (19:13→21:13)
[2020-10-19 19:31] LABS: ALANINE AMINOTRANSFERASE 20 U/L (12-78); ALBUMIN 3.4 G/DL (3.4-5.0); ALKALINE PHOSPHATASE 79 IU/L (46-116); ANION GAP 9 (8-16); ASPARTATE AMINO TRANSFERASE 20 U/L (10-37); BILIRUBIN,TOTAL 0.4 MG/DL (0.1-1.0); BLOOD UREA NITROGEN 17 MG/DL (7-18); BUN/CREATININE RATIO 10.2 (5.4-32.0); CALCIUM 8.3 MG/DL (8.5-10.1); CHLORIDE 110 MMOL/L (99-107); CREATININE 1.67 MG/DL (0.60-1.10); GLUCOSE 134 MG/DL (70-104); POTASSIUM 4.1 MMOL/L (3.5-5.1); SODIUM 146 MMOL/L (135-145); TOTAL CARBON DIOXIDE 26.7 MMOL/L (24-32); TOTAL PROTEIN 6.7 G/DL (6.4-8.2); eGFR 41 ML/MIN
[2020-10-19 19:32] LABS: BASOPHILS # (AUTO) 0.1 X10'3 (0-0.2); BASOPHILS % (AUTO) 0.8 % (0-1); EOSINOPHILS # (AUTO) 0.7 X10'3 (0-0.9); EOSINOPHILS % (AUTO) 6.7 % (0-6); HEMATOCRIT 49.1 % (42.0-52.0); HEMOGLOBIN 16.6 g/dl (14.0-17.9); LYMPHOCYTES % (AUTO) 18.9 % (21-51); MEAN CORPUSCULAR HEMOGLOBIN 29.5 PG (27.0-31.0); MEAN CORPUSCULAR HGB CONC 33.7 g/dL (33.0-36.5); MEAN CORPUSCULAR VOLUME 87.5 FL (78-98); MEAN PLATELET VOLUME 7.4 FL (7.4-10.4); MONOCYTES # (AUTO) 1.2 X10'3 (0-0.9); MONOCYTES % (AUTO) 11.3 % (2-12); NEUTROPHILS # (AUTO) 6.5 X10'3 (1.8-7.7); NEUTROPHILS % (AUTO) 62.3 % (42-75); PLATELET COUNT 251 X10'3 (140-440); RED BLOOD COUNT 5.61 X10'6 (4.70-6.10); RED CELL DISTRIBUTION WIDTH 15.1 % (11.5-14.5); WHITE BLOOD COUNT 10.5 X10'3 (4.5-11.0)
[2020-10-19] MEDS ORDERED: normal saline 1000ML IV soln IVB ONE (20:55)
[2020-10-19 22:43] VITALS: BP 153/98
== END 2020-10-19 22:45 | disposition home or self-care (01) ==
LOC: ER 18:19
DX: J44.1 Chronic obstructive pulmonary disease with (acute) exacerbation (principal); Z20.828 Contact with and (suspected) exposure to other viral communicable diseases; I11.0 Hypertensive heart disease with heart failure; I50.9 Heart failure, unspecified; Z98.890 Other specified postprocedural states; Z88.8 Allergy status to other drugs, medicaments and biological substances; Z79.899 Other long term (current) drug therapy
CPT/HCPCS: 36415; 71045; 80053; 83880; 84484; 85025; 87635; 93005; 94640; 99285; C9803; J7030; 94760

== ENCOUNTER → 2020-11-02 | Emergency (ER) | payer MEDICARE, OTHER ==
[~2020-11-02] VITALS: Ht 165.1 cm; Wt 95.9 kg
[~2020-11-02] MED LIST changes: +AZIT-31 PO; +DEXA6TAB6 PO; +ipratropium/albuterol 3ml nebule NEB ONE
--- NOTE | 2020-11-02 07:27 | NUR ---
RT PG'ED FOR NEB TX
--- NOTE | 2020-11-02 07:38 | NUR ---
UNABLE TO SCAN MEDICATION. PATIENT WAS NOT PROVIDED WITH WRISTBAND. USED FULL NAME AND TO IDENTIFY PATIENT.
[2020-11-02 08:07] VITALS: BP 136/94
== END | disposition home or self-care (01) ==
LOC: ER 06:48
DX: J42 Unspecified chronic bronchitis (principal); I11.0 Hypertensive heart disease with heart failure; F17.200 Nicotine dependence, unspecified, uncomplicated; Z88.5 Allergy status to narcotic agent; Z79.899 Other long term (current) drug therapy
CPT/HCPCS: 71045; 94640; 94760; 99283

== ENCOUNTER 2020-11-08 20:31 | Emergency (ER) | payer MEDICARE, OTHER ==
[~2020-11-08] VITALS: Ht 165.1 cm; Wt 95.9 kg
[~2020-11-08 20:31] MED LIST changes: -ipratropium/albuterol 3ml nebule NEB ONE
[2020-11-08 21:34] LABS: BASOPHILS # (AUTO) 0.1 X10'3 (0-0.2); BASOPHILS % (AUTO) 0.8 % (0-1); EOSINOPHILS # (AUTO) 0.7 X10'3 (0-0.9); EOSINOPHILS % (AUTO) 5.2 % (0-6); HEMATOCRIT 50.1 % (42.0-52.0); LYMPHOCYTES # (AUTO) 2.3 X10'3 (1.1-4.8); LYMPHOCYTES % (AUTO) 17.7 % (21-51); MEAN CORPUSCULAR HEMOGLOBIN 29.8 PG (27.0-31.0); MEAN CORPUSCULAR HGB CONC 33.9 g/dL (33.0-36.5); MEAN CORPUSCULAR VOLUME 87.9 FL (78-98); MEAN PLATELET VOLUME 7.4 FL (7.4-10.4); MONOCYTES # (AUTO) 1.3 X10'3 (0-0.9); MONOCYTES % (AUTO) 9.9 % (2-12); NEUTROPHILS # (AUTO) 8.6 X10'3 (1.8-7.7); NEUTROPHILS % (AUTO) 66.4 % (42-75); PLATELET COUNT 254 X10'3 (140-440); RED BLOOD COUNT 5.71 X10'6 (4.70-6.10); WHITE BLOOD COUNT 12.9 X10'3 (4.5-11.0)
[2020-11-08 21:47] LABS: ALANINE AMINOTRANSFERASE 18 U/L (12-78); ALBUMIN 3.3 G/DL (3.4-5.0); ALKALINE PHOSPHATASE 82 IU/L (46-116); ANION GAP 11 (8-16); ASPARTATE AMINO TRANSFERASE 16 U/L (10-37); BILIRUBIN,TOTAL 0.3 MG/DL (0.1-1.0); BLOOD UREA NITROGEN 26 MG/DL (7-18); BUN/CREATININE RATIO 14.9 (5.4-32.0); CALCIUM 8.6 MG/DL (8.5-10.1); CHLORIDE 107 MMOL/L (99-107); CREATININE 1.74 MG/DL (0.60-1.10); GLUCOSE 205 MG/DL (70-104); SODIUM 145 MMOL/L (135-145); TOTAL CARBON DIOXIDE 27.5 MMOL/L (24-32); TOTAL PROTEIN 6.5 G/DL (6.4-8.2); eGFR 39 ML/MIN
[2020-11-08 22:51] VITALS: BP 135/71
== END 2020-11-08 23:15 | disposition home or self-care (01) ==
LOC: ER 20:32
DX: J44.1 Chronic obstructive pulmonary disease with (acute) exacerbation (principal); B34.9 Viral infection, unspecified; R07.89 Other chest pain; R06.02 Shortness of breath; I11.0 Hypertensive heart disease with heart failure; I50.9 Heart failure, unspecified; Z98.890 Other specified postprocedural states; Z88.5 Allergy status to narcotic agent; Z79.899 Other long term (current) drug therapy
CPT/HCPCS: 71045; 80053; 83880; 84484; 85025; 93005; 99285

== ENCOUNTER 2021-01-24 10:07 | Outpatient (CLI) | payer MEDICARE, OTHER ==
[~2021-01-24 10:07] MED LIST changes: -AZIT-31 PO; -LISI-600 PO; +LISI20TA28 PO
== END 2021-01-24 23:59 | disposition home or self-care (01) ==
LOC: VAS 10:07
PROVIDERS: ATTEND Family Medicine
DX: M79.89 Other specified soft tissue disorders (principal)
CPT/HCPCS: 93971

== ENCOUNTER 2021-01-29 23:43 | Emergency (ER) | payer MEDICARE, MEDICAID ==
[~2021-01-29] VITALS: Ht 165.1 cm; Wt 96.8 kg
[2021-01-29 23:47] VITALS: BP 142/85
== END 2021-01-30 00:34 | disposition left against medical advice (07) ==
LOC: ER 23:44
DX: R51.9 Headache, unspecified (principal); Z53.21 Procedure and treatment not carried out due to patient leaving prior to being seen by health care provider

== ENCOUNTER 2021-02-18 10:45 | Emergency (ER) | payer MEDICARE, OTHER ==
[~2021-02-18] VITALS: Ht 165.1 cm; Wt 94.1 kg
[2021-02-18] MEDS ORDERED: morphine 4 MG/ML inj SYRINge IV PRN (11:10)
[2021-02-18] MEDS ORDERED: ondansetron/PF 4mg/2ml inj IV ONE (11:10)
[2021-02-18] MEDS ORDERED: morphine 4 MG/ML inj SYRINge IM ONE (11:20)
[2021-02-18 11:29] LABS: BASOPHILS # (AUTO) 0.1 X10'3 (0-0.2); BASOPHILS % (AUTO) 0.5 % (0-1); EOSINOPHILS # (AUTO) 0.9 X10'3 (0-0.9); EOSINOPHILS % (AUTO) 8.5 % (0-6); HEMATOCRIT 51.3 % (42.0-52.0); HEMOGLOBIN 16.9 g/dl (14.0-17.9); LYMPHOCYTES # (AUTO) 1.3 X10'3 (1.1-4.8); LYMPHOCYTES % (AUTO) 12.1 % (21-51); MEAN CORPUSCULAR HEMOGLOBIN 28.4 PG (27.0-31.0); MEAN CORPUSCULAR HGB CONC 32.9 g/dL (33.0-36.5); MEAN CORPUSCULAR VOLUME 86.3 FL (78-98); MEAN PLATELET VOLUME 7.4 FL (7.4-10.4); MONOCYTES # (AUTO) 0.7 X10'3 (0-0.9); MONOCYTES % (AUTO) 6.9 % (2-12); NEUTROPHILS # (AUTO) 7.6 X10'3 (1.8-7.7); PLATELET COUNT 324 X10'3 (140-440); RED BLOOD COUNT 5.94 X10'6 (4.70-6.10); RED CELL DISTRIBUTION WIDTH 14.2 % (11.5-14.5); WHITE BLOOD COUNT 10.5 X10'3 (4.5-11.0)
[2021-02-18 11:50] LABS: ALANINE AMINOTRANSFERASE 8 U/L (12-78); ALBUMIN 3.4 G/DL (3.4-5.0); ALBUMIN/GLOBULIN RATIO 0.8 (1.1-1.5); ALKALINE PHOSPHATASE 91 IU/L (46-116); ASPARTATE AMINO TRANSFERASE 14 U/L (10-37); BILIRUBIN,TOTAL 0.6 MG/DL (0.1-1.0); BLOOD UREA NITROGEN 20 MG/DL (7-18); BUN/CREATININE RATIO 13.7 (5.4-32.0); C-REACTIVE PROTEIN 4.84 MG/DL (0.0-0.5); CHLORIDE 105 MMOL/L (99-107); CREATININE 1.46 MG/DL (0.60-1.10); GLUCOSE 223 MG/DL (70-104); TOTAL CARBON DIOXIDE 26.3 MMOL/L (24-32); TOTAL PROTEIN 7.7 G/DL (6.4-8.2); eGFR 48 ML/MIN
[2021-02-18 11:52] LABS: ANION GAP 11 (8-16); SODIUM 142 MMOL/L (135-145)
[2021-02-18] MEDS ORDERED: HYDROcodone/acetaminophen 10/325mg tab PO ONE (12:40)
[2021-02-18 13:10] LABS: URINE AMPHETAMINE SCREEN NEGATIVE (Neg); URINE BARBITUATE SCREEN NEGATIVE (Neg); URINE BENZODIAZEPINES SCREEN NEGATIVE (Neg); URINE CANNABINOID SCREEN NEGATIVE (Neg); URINE COCAINE SCREEN NEGATIVE (Neg); URINE METHADONE SCREEN NEGATIVE (Neg); URINE OPIATE SCREEN NEGATIVE (Neg); URINE PHENCYCLIDINE SCREEN NEGATIVE (Neg)
[2021-02-18 13:13] VITALS: BP 131/80
[2021-02-22] MEDS ORDERED: POTA20TA19 PO (00:50)
[2021-02-22] MEDS ORDERED: GABA-530 PO (00:50)
[2021-02-22] MEDS ORDERED: MONT10TA32 PO (00:50)
== END 2021-02-18 14:22 | disposition home or self-care (01) ==
LOC: ER 10:46
DX: M25.562 Pain in left knee (principal); G89.29 Other chronic pain; M79.604 Pain in right leg; I11.0 Hypertensive heart disease with heart failure; I50.9 Heart failure, unspecified; J44.9 Chronic obstructive pulmonary disease, unspecified; Z98.890 Other specified postprocedural states; Z88.5 Allergy status to narcotic agent; Z79.899 Other long term (current) drug therapy
CPT/HCPCS: 36415; 73564; 80053; 80305; 84145; 85025; 85651; 86140; 96374; 96375; 99284; J2270; J2405

== ENCOUNTER 2022-05-17 03:37 | Emergency (ER) | payer MEDICARE, OTHER ==
[~2022-05-17] VITALS: Ht 162.6 cm; Wt 92.6 kg
[~2022-05-17 03:37] MED LIST changes: -ALBU18HF2 IH; -COLC0.6T66 PO; -DEXA6TAB6 PO; -FURO40TA4 PO; +GABA-530 PO; +MONT-40 PO; -POTA15TA11 PO
[2022-05-17 03:43] VITALS: BP 145/91
== END 2022-05-17 05:22 | disposition left against medical advice (07) ==
LOC: ER 03:38
DX: R06.02 Shortness of breath (principal); J44.9 Chronic obstructive pulmonary disease, unspecified; Z53.21 Procedure and treatment not carried out due to patient leaving prior to being seen by health care provider